=== PATIENT | male | born 1930 | race Caucasian/White ===

== ENCOUNTER 2018-01-24 09:33 | Day surgery (SDC) | payer MEDICARE, BC ==
[2018-01-24] MEDS ORDERED: Bupivacaine 0.25% 30 ML SDV ONE (10:28)
[2018-01-24] MEDS ORDERED: Propofol 200 MG/20 ML SDV ONE (10:59)
[2018-01-24] MEDS ORDERED: fentaNYL 100 MCG/2 ML SDV ONE ×2 (11:00→12:03)
[2018-01-24] MEDS ORDERED: Lidocaine 1% 4 ML ONE (11:01)
[2018-01-24] MEDS ORDERED: Sodium Chloride 0.9% 10 ML Syringe FLUSH PRN (11:02)
[2018-01-24] MEDS ORDERED: Lidocaine 1%/Sod Bicarbonate in NS 8.4% 1 ML Syringe IDERM PRN (11:02)
--- NOTE | 2018-01-24 11:02 | PCM.PREANE ---
Preanesthetic Assessment - Procedure Proposed Procedure: Revision of right above the knee amputation - Anesthesia/Transfusion/Family Hx Anesthesia History: Prior Anesthesia Without Reaction Family History of Anesthesia Reaction: No Transfusion History: No Prior Transfusion(s) Intubation History: Unknown Additional History: chronic renal insufficiency - Review of Systems Pulmonary: Other (COPD) Cardiovascular: Other (Afib, CHF, CAD, pacemaker, chronic anticoagulation- last taken xarelto on 5-4, PVD, heart valve replacements x3) Gastrointestinal: Other (GERD) Neurological: Seizure, Other (dementia ) Other: Reports: Depression, Anxiety - Physical Assessment NPO Status Date: 01/23/18 NPO Status Time: 21:00 Pulse: 73 O2 Sat by Pulse Oximetry: 93 Respiratory Rate: 20 Blood Pressure: 108/72 Temperature: 37.4 C Height: 1.85 m Weight: 85.275 kg ASA Class: 3 Mental Status: Alert & Oriented x3 Dentition: Reports: Dentures (upper ), Partial (bottom ) Thyro-Mental Finger Breadths: 3 Mouth Opening Finger Breadths: 3 ROM/Head Extension: Full Lungs: Clear to Auscultation, Normal Respiratory Effort Cardiovascular: Regular Rate, Regular Rhythm - Lab Values: Laboratory Last Values PT 11.7 SECONDS (9.5-12.1) 01/24/18 10:17 INR 1.07 01/24/18 10:17 - Allergies Allergies/Adverse Reactions: Allergies Allergy/AdvReac Type Severity Reaction Status Date / Time No Known Allergies Allergy Verified 01/24/18 06:57 - Blood Blood Available: No Product(s) Available: None - Anesthesia Plan Pre-Op Medication Ordered: None Beta Cortney: Carvedilol Med Last Dose Date: 01/24/18 Med Last Dose Time: 07:30 - Acknowledgements Anesthesia Type Planned: General Anesthesia (Had a in depth talk with the patient and his son (POA) about risks and complications with anesthesia for this procedure (including heart attack, stroke, and ). Patient and son aware of his increased risk for anesthesia complications due to his multiple comorbidities. Patient and son still wish to proceed. Dr Anderson is aware of patients increased risk factors. ) Pt an Appropriate Candidate for the Planned Anesthesia: Yes Alternatives and Risks of Anesthesia Discussed w Pt/Guardian: Yes Pt/Guardian Understands and Agrees with Anesthesia Plan: Yes PreAnesthesia Questionnaire HEENT History: Reports: None Cardiovascular History: Reports: Afib, Pacemaker, PVD, Other (See Below) Other Cardiovascular History: valve replacements x 3, aortic valve disorder, endocarditis Respiratory History: Reports: COPD, Sleep Apnea Gastrointestinal History: Reports: Chronic Constipation, Hemorrhoids Genitourinary History: Reports: BPH, Chronic Renal Insuffiency, UTI, Recurrent COAT CHECK ATTENDANT History: Reports: None Musculoskeletal History: Reports: Osteoarthritis, Other (See Below) Other Musculoskeletal History: right above knee amputation, kyphoplasty, osteomyelitis, pain, muscle weakness Neurological History: Reports: Seizure, Other (See Below) Other Neuro History: dementia with agitation Psychiatric History: Reports: Anxiety, Dementia, Depression Endocrine/Metabolic History: Reports: None Hematologic History: Reports: Anemia, Iron Deficiency Immunologic History: Reports: None Oncologic (Cancer) History: Reports: None Dermatologic History: Reports: Other (See Below) Other Dermatologic History: gangrene, MRSA, abcess - Past Surgical History Head Surgeries/Procedures: Reports: None HEENT Surgical History: Reports: None Cardiovascular Surgical History: Reports: Valve Replacement Respiratory Surgical History: Reports: None Female Surgical History: Reports: None Male Surgical History: Reports: None Endocrine Surgical History: Reports: None Neurological Surgical History: Reports: None - HOME MEDS Home Medications: Home Meds Acetaminophen [Tylenol] 650 mg PO Q4H PRN 01/24/18 [History] Aspirin [[place] Aspirin] 81 mg PO DAILY 01/24/18 [History] Carvedilol [Coreg] 3.125 mg PO BID 01/24/18 [History] Cyanocobalamin (Vitamin B12) [Vitamin B12] 250 mcg PO DAILY 01/24/18 [History] Divalproex Sodium [Depakote] 250 mg PO BEDTIME 01/24/18 [History] Donepezil HCl [Aricept] 10 mg PO DAILY 01/24/18 [History] Ferrous Sulfate [Iron] 325 mg PO BID 01/24/18 [History] Fluticasone/Salmeterol [Advair 250-50 Diskus] 1 puff INH BID 01/24/18 [History] Folic Acid 1 mg PO DAILY 01/24/18 [History] Furosemide 40 mg PO BID 01/24/18 [History] Gabapentin [Neurontin] 300 mg PO TID 01/24/18 [History] Magnesium Oxide 400 mg PO BID 01/24/18 [History] Melatonin 6 mg PO BEDTIME 01/24/18 [History] Multivitamin [Poly-Vitamin] 1 tab PO DAILY 01/24/18 [History] Omeprazole 20 mg PO DAILY 01/24/18 [History] PARoxetine HCl [Paxil] 40 mg PO DAILY 01/24/18 [History] Polyethylene Glycol 3350 [MiraLAX] 1 dose PO DAILY 01/24/18 [History] Polyethylene Glycol 3350 [MiraLAX] 1 dose PO DAILY PRN 01/24/18 [History] Potassium Chloride [Klor-Con 10] 10 meq PO DAILY 01/24/18 [History] Sulfamethoxazole/Trimethoprim [Bactrim Ds Tablet] 1 tab PO BID 01/24/18 [History ] Thiamine [Vitamin B-1] 100 mg PO DAILY 01/24/18 [History] Warfarin Sodium [Coumadin] 3 mg PO Q48H 01/24/18 [History] Warfarin Sodium [Coumadin] 4.5 mg PO Q48H 01/24/18 [History] atorvaSTATin [Lipitor] 10 mg PO DAILY 01/24/18 [History] busPIRone [Buspar] 5 mg PO TID 01/24/18 [History] guaiFENesin [Tussin] 5 ml PO Q4H PRN 01/24/18 [History] oxyCODONE HCl/Acetaminophen [Oxycodone-Acetaminophen 5-325] 0.5 tab PO TID 01/24 [History] oxyCODONE HCl/Acetaminophen [Oxycodone-Acetaminophen 5-325] 1 tab PO Q6H PRN 04/06 [History] - CURRENT (IN HOUSE) MEDS Current Meds: Current Medications Discontinued Medications Bupivacaine HCl (Marcaine 0.25%) Confirm Administered Dose 30 ml .ROUTE .STK- MED ONE Stop: 01/24/18 10:29
[2018-01-24] MEDS ORDERED: Lactated Ringers 1,000 ML IV SCH (11:15)
[2018-01-24] MEDS ORDERED: Phenylephrine 1% 10 MG/ML SDV ONE (11:42)
[2018-01-24] MEDS ORDERED: Ondansetron 4 MG/2 ML SDV ONE (12:12)
--- NOTE | 2018-01-24 13:05 | PCM.POSTAN ---
POST ANESTHESIA ASSESSMENT - MENTAL STATUS Mental Status: Alert - VITAL SIGNS Pulse Rate: 78 SaO2: 95 Resp Rate: 13 Blood Pressure: 149/88 Temperature: 36.5 C - RESPIRATORY Respiratory Status: Respiratory Rate WNL, Airway Patent, O2 Saturation Stable - CARDIOVASCULAR CV Status: Pulse Rate WNL, Blood Pressure Stable - GASTROINTESTINAL GI Status: No Symptoms - POST OP HYDRATION Hydration Status: Adequate & Stable
[2018-01-24] MEDS ORDERED: fentaNYL 100 MCG/2 ML SDV IVPUSH PRN (13:08)
[2018-01-24] MEDS ORDERED: Ondansetron 4 MG/2 ML SDV IVPUSH PRN (13:08)
[2018-01-24] MEDS ORDERED: diphenhydrAMINE 50 MG/ML SDV IVPUSH PRN (13:08)
[2018-01-24] MEDS ORDERED: Acetaminophen/oxyCODONE 325-5 MG Tab PO PRN (13:50)
[2018-01-24] MEDS ORDERED: oxyCODONE 5 MG Tab PO ONE (14:47)
[2018-01-24] MEDS ORDERED: HYDROmorphone 0.5 MG/0.5 ML Syringe ONE ×2 (15:40→16:06)
[2018-01-24] MEDS ORDERED: Acetaminophen/oxyCODONE 325-5 MG Tab ONE (20:20)
[2018-01-25] MEDS ORDERED: Acetaminophen/oxyCODONE 325-5 MG Tab ONE (01:44)
[2018-01-25] MEDS ORDERED: Acetaminophen/oxyCODONE 325-5 MG Tab PO PRN (02:35)
[2018-01-25] MEDS ORDERED: Morphine 2 MG/ML Syringe IVPUSH ONE (06:02)
[2018-01-25] MEDS ORDERED: oxyCODONE 5 MG Tab PO ONE ×2 (06:03→12:30)
[2018-01-25] MEDS ORDERED: Ketorolac 15 MG/ML SDV IVPUSH PRN (10:21)
[2018-01-25] MEDS ORDERED: HYDROmorphone 0.5 MG/0.5 ML Syringe IVPUSH SCH (10:45)
--- NOTE | 2018-01-25 16:22 | CR ---
Chest: Frontal view of the chest was obtained. Comparison: No prior chest x-ray is available. Heart size at the upper limits of normal. Tortuous thoracic aorta is seen. Prosthetic heart valves are seen. Pacemaker is noted. Right-sided PICC line is seen. Tip of PICC line lies within the superior vena cava in satisfactory position. Minimal atelectasis within both lung bases. Lungs otherwise are clear. Bony structures are grossly intact. Impression: 1. Right-sided PICC line with tip being within the superior vena cava which is satisfactory. 2. Other incidental findings. Diagnostic code #2
--- NOTE | 2018-01-27 07:32 | PCM48HPAN ---
Post Anesthesia Note - EVALUATION WITHIN 48HRS OF ANESTHETIC Vital Signs in Normal Range: Yes Patient Participated in Evaluation: Yes Respiratory Function Stable: Yes Airway Patent: Yes Cardiovascular Function Stable: Yes Hydration Status Stable: Yes Pain Control Satisfactory: Yes Nausea and Vomiting Control Satisfactory: Yes Mental Status Recovered: Yes Pulse Rate: 78 Resp Rate: 16 Temperature: 36.5 C Blood Pressure: 149/88 - COMMENTS/OBSERVATIONS Free Text/Narrative:: Assessed 01/24/18 [id number]
--- NOTE | 2018-01-27 11:28 | PCM.OPNOTE ---
- General Post-Op/Procedure Note Date of Surgery/Procedure: 01/24/18 Operative Procedure(s): right above knee amputation revision Pre Op Diagnosis: right above knee amputation skin breakdown with ulceration Post-Op Diagnosis: Same Anesthesia Technique: General ET Tube Primary Surgeon: Last Anderson Anesthesia Provider: Zofia Ellison Supervisor Power Reactor: Demi Mireles in mLs: 30 Complications: None Condition: Good
--- NOTE | 2018-01-27 22:19 | OR ---
DATE OF OPERATION: 01/24/2018 SURGEON: Last Anderson MD OPERATION PERFORMED: Right above-knee amputation revision. PREOPERATIVE DIAGNOSIS: Right above-knee amputation, skin breakdown with ulceration. POSTOPERATIVE DIAGNOSIS: Right above-knee amputation, skin breakdown with ulceration. ANESTHESIA: General endotracheal intubation. ANESTHESIA PROVIDER: Alvin Bee. MACHINE SETTER SUPERVISOR: Demi Mireles PA-C. ESTIMATED BLOOD LOSS: 30 mL. COMPLICATIONS: None. CONDITION: Stable. DESCRIPTION OF PROCEDURE: The patient was identified in the preop holding area. Proper site was marked and identified by the surgeon. The patient was taken back to the operating theater where after adequate anesthesia, the patient's right lower extremity was sterilely prepped and draped in the usual sterile fashion. OR time-out was performed. The patient received 2 g IV Ancef after cultures were taken. Right lower extremity then had a sterile tourniquet applied and the right lower extremity ulceration was identified. There was a small bony fragment that was coming through the ulceration. At this time, I did an incision around the ulceration and ellipsed out and debrided and resected out the skin around the ulceration. The 4 inch incision was then carried down bluntly all the way down to the femur. The spike of bone was identified and using a saw, I did take about 1 x 1.5 inches of the femur along with that spike and resecting it. The bone looked good with no signs of osteomyelitis, but we did take cultures of both the superficial wound as well as the marrow just to make sure that there was no deep infection. The tissue looked very good with no signs of purulence and there was no drainage around it just the erythema and skin breakdown noted from the ulceration in the protrusion of bone. At this time, a rasp was used to rasp the edges of the distal femur and it was cut so that more was taken up from the anterior portion and the posterior portion. There was no bony fragments that were noted to be sharp at this time. At this time, 3 L normal saline was irrigated through the wound. A 2-0 Monocryl was used for deep closure and I did approximate and bring up tissue from posteriorly above over the top of the stump of the femur to make sure it was well padded at this time. 3-0 Monocryl was used subcutaneously and 3-0 nylon was used for the skin. The patient had a sterile soft dressing applied and was sent to the PACU in stable condition. MMODAL /[id number]
== END 2018-01-25 14:18 | disposition home or self-care (01) ==
LOC: JD.SDS 09:33
PROVIDERS: ATTEND Orthopaedic Surgery
DX: M86.8X6 Other osteomyelitis, lower leg (principal); L97.811 Non-pressure chronic ulcer of other part of right lower leg limited to breakdown of skin; I48.2 Chronic atrial fibrillation; J44.9 Chronic obstructive pulmonary disease, unspecified; I50.9 Heart failure, unspecified; I25.2 Old myocardial infarction; N39.0 Urinary tract infection, site not specified; G47.30 Sleep apnea, unspecified; K21.9 Gastro-esophageal reflux disease without esophagitis; F41.9 Anxiety disorder, unspecified; F32.9 Major depressive disorder, single episode, unspecified; I25.10 Atherosclerotic heart disease of native coronary artery without angina pectoris; Z79.01 Long term (current) use of anticoagulants; Z79.82 Long term (current) use of aspirin; Z79.899 Other long term (current) drug therapy; Z95.2 Presence of prosthetic heart valve; Z89.611 Acquired absence of right leg above knee
CPT/HCPCS: 11044; 36415; 80048; 85025; 85610; 86140; 87075; 87077; 87186; 87205; 93005; A9270; J1170; J1885; J2001; J2270; J2370; J2405; J3010; J7120; J2704; J3490